=== PATIENT | female | born 1965 | race Caucasian/White ===

== ENCOUNTER 2017-12-07 09:37 | Inpatient (IN) | payer BC ==
[2017-12-07 10:27] VITALS: BMI 32.8
--- NOTE | 2017-12-07 11:29 | HP ---
CIWA Score - CIWA Score Nausea/Vomitin-Mild Nausea/No Vomiting Muscle Tremors: 4-Moderate,w/Arms Extend Anxiety: 4-Mod. Anxious/Guarded Agitation: 4-Moderately Restless Paroxysmal Sweats: 3 Orientation: 0-Oriented Tacttile Disturbances: 0-None Auditory Disturbances: 0-None Visual Disturbances: 0-None Headache: 0-None Present CIWA-Ar Total Score: 16 Admission ROS BHS - HPI Chief Complaint: I am here for detox. Allergies/Adverse Reactions: Allergies Allergy/AdvReac Type Severity Reaction Status Date / Time penicillin G Allergy Severe Swelling Verified 12/07/17 10:42 History of Present Illness: pt is a 52yr old female with a history of alcohol dependence seeking detox for treatment. Exam Limitations: No Limitations - Ebola screening Have you traveled outside of the country in the last 21 days: No Have you had contact with anyone from an Ebola affected area: No Have you been sick,other than usual withdrawal symptoms: No Do you have a fever: No - Review of Systems Constitutional: Chills, Diaphoresis, Loss of Appetite, Night Sweats, Changes in sleep, Unintentional Wgt. Loss EENT: reports: Tearing Respiratory: reports: No Symptoms reported Cardiac: reports: No Symptoms Reported, Syncope GI: reports: Poor Appetite, Poor Fluid Intake : reports: No Symptoms Reported Musculoskeletal: reports: No Symptoms Reported Integumentary: reports: Flushing, Sweating Neuro: reports: Tingling, Tremors Endocrine: reports: Excessive Sweating, Flushing, Intolerance to Cold, Intolerance to Heat Hematology: reports: No Symptoms Reported Psychiatric: reports: Judgement Intact, Mood/Affect Appropiate, Orientated x3, Agitated, Anxious Other Systems: Reviewed and Negative Patient History - Patient Medical History Hx Anemia: No Hx Asthma: No Hx Chronic Obstructive Pulmonary Disease (COPD): No Hx Cancer: No Hx Cardiac Disorders: No Hx Congestive Heart Failure: No Hx Hypertension: Yes (not taking any medication) Hx Hypercholesterolemia: No Hx Pacemaker: No HX Cerebrovascular Accident: No Hx Seizures: No Hx Dementia: No Hx Diabetes: No Hx Gastrointestinal Disorders: No Hx Liver Disease: No Hx Genitourinary Disorders: No Hx Sexually Transmitted Disorders: No Hx Renal Disease (ESRD): No Hx Thyroid Disease: No Hx Human Immunodeficiency Virus (HIV): No (negative) Hx Hepatitis C: No (negative) Hx Depression: Yes Hx Suicide Attempt: No (denies) Hx Bipolar Disorder: No Hx Schizophrenia: No - Patient Surgical History Past Surgical History: Yes Hx Neurologic Surgery: No Hx Cataract Extraction: No Hx Cardiac Surgery: No Hx Lung Surgery: No Hx Breast Surgery: No Hx Breast Biopsy: No Hx Abdominal Surgery: Yes (gastric sleeve in 2013) Hx Appendectomy: No Hx Cholecystectomy: No Hx Genitourinary Surgery: No Hx Section: No Hx Orthopedic Surgery: No Hx Hysterectomy: No Anesthesia Reaction: No - PPD History Previous Implant?: Yes Documented Results: Negative w/o proof Implanted On Prior R Admission?: No PPD to be Administered?: Yes - Reproductive History Patient is a Female of Child Bearing Age (11 -55 yrs old): No - Smoking Cessation Smoking history: Never smoked Hx Chewing Tobacco Use: No Initiated information on smoking cessation: No - Substance & Tx. History Hx Alcohol Use: Yes Hx Substance Use: No Substance Use Type: Alcohol Hx Substance Use Treatment: Yes (last detox [facility] outpatient 1 week ago) - Substances Abused Alcohol-vodka/whisky Route: Oral Frequency: Daily Amount used: 1 pt. Age of first use: 16 Date of Last Use: 12/07/17 Family Disease History - Family Disease History Family History: Denies Admission Physical Exam BHS - Vital Signs Vital Signs: Vital Signs - 24 hr 12/07/17 10:25 Temperature 96.7 F L Pulse Rate 97 H Respiratory 20 Rate Blood Pressure 142/98 - Physical General Appearance: Yes: Appropriately Dressed, Moderate Distress, Tremorous, Irritable, Sweating, Anxious HEENTM: Yes: Hearing grossly Normal, Normal Voice, Nasal Congestion, Rhinorrhea Respiratory: Yes: Lungs Clear, Normal Breath Sounds, No Respiratory Distress Neck: Yes: No masses,lesions,Nodules Breast: Yes: Within Normal Limits Cardiology: Yes: Regular Rhythm, Regular Rate, S1, S2 Abdominal: Yes: Normal Bowel Sounds, Non Tender, Soft Genitourinary: Yes: Within Normal Limits Back: Yes: Normal Inspection Musculoskeletal: Yes: full range of Motion Extremities: Yes: Normal Capillary Refill, Normal Inspection, Tremors Neurological: Yes: Fully Oriented, Alert, Normal Response Integumentary: Yes: Normal Color Lymphatic: Yes: Within Normal Limits - Diagnostic (1) Alcohol dependence with uncomplicated withdrawal Current Visit: Yes Status: Chronic (2) Hypertension Current Visit: Yes Status: Chronic Qualifiers: Hypertension type: essential hypertension Qualified Code(s): I10 - Essential (primary) hypertension (3) H/O bariatric surgery Current Visit: No Status: Chronic Cleared for Admission BHS - Detox or Rehab BHS Level of Care: Medically Managed Detox Regimen/Protocol: Librium BHS Breath Alcohol Content Breath Alcohol Content: 0.337
[2017-12-07] MEDS ORDERED: MAGNESIUM HYDROX 2400MG/30ML ORAL SUSPENSION 30 ML CUP PO PRN (11:31)
[2017-12-07] MEDS ORDERED: guaiFENesin/D-METHORPHAN HB 10 ML UNIT-DOSE CUPS PO PRN (11:31)
[2017-12-07] MEDS ORDERED: P-EPHED 60MG/TRIPROLIDI 2.5MG TABLET PO PRN (11:31)
[2017-12-07] MEDS ORDERED: ACETAMINOPHEN 325 MG TABLET (FP) PO PRN (11:31)
[2017-12-07] MEDS ORDERED: MAG HYDROX/AL HYDROX/SIMETH 30 ML UNIT-DOSE CUP PO PRN (11:31)
[2017-12-07] MEDS ORDERED: LOPERAMIDE HCL 2 MG CAPSULE PO PRN (11:31)
[2017-12-07] MEDS ORDERED: IBUPROFEN 400 MG TABLET (FP) PO PRN (11:31)
[2017-12-07] MEDS ORDERED: MENTHOL/PHENOL 1 EACH UD MM PRN (11:31)
[2017-12-07] MEDS ORDERED: MAGNESIUM CITRATE 300 ML BOTTLE PO PRN (11:31)
[2017-12-07] MEDS ORDERED: chlordiazePOXIDE HCL 25 MG CAPSULE PO ONE (12:00)
[2017-12-07] MEDS: chlordiazePOXIDE HCL 25 MG CAPSULE PO PRN ×2 (14:51→19:32)
--- NOTE | 2017-12-07 15:42 | CONSULT ---
[facility] Psychiatric Consult - Data Date of interview: 12/08/17 Admission source: [facility] Identifying data: Pt. is a 52 year , mother of two, and currently working. This is patient's first admission to [facility]. Pt. admitted to for alcohol dependence. Substance Abuse History: Following information confirmed with Ms. Yi: Smoking Cessation. Smoking history: Never smoked. Hx Chewing Tobacco Use: No. Initiated information on smoking cessation: No. - Substance & Tx. History. Hx Alcohol Use: Yes. Hx Substance Use: No. Substance Use Type: Alcohol. Hx Substance Use Treatment: Yes (last detox [facility] outpatient 1 week ago ). - Substances Abused. Alcohol-vodka/whisky. Route: Oral. Frequency: Daily. Amount used: 1 pt. Age of first use: 16. Date of Last Use: 12/07/17 Medical History: hypertension, gastric sleeve in 2012. Psychiatric History: Pt. denies h/o psychiatric hospitalizations, suicide attempts and outpatient care. Pt. is currently prescribed wellbutrin 300Xl from her PCP. Pt. states she has been taking wellbutrin for approximately 2- 3 years. States her last dose was on Tuesday12/04/17. Physical/Sexual Abuse/Trauma History: Denies. Mental Status Exam - Mental Status Exam Alert and Oriented to: Time, Place, Person Cognitive Function: Good Patient Appearance: Unkempt Mood: Sad, Anxious Affect: Mood Congruent Patient Behavior: Crying (Pt. tearful about current situation.) Speech Pattern: Appropriate Voice Loudness: Normal Thought Process: Goal Oriented Thought Disorder: Not Present Hallucinations: Denies Suicidal Ideation: Denies Homicidal Ideation: Denies Insight/Judgement: Poor Sleep: Poorly Appetite: Fair Muscle strength/Tone: Normal Gait/Station: Normal Psychiatric Findings - Problem List ([place] 1, 2,3) (1) Alcohol dependence with uncomplicated withdrawal Current Visit: Yes Status: Acute (2) MDD (major depressive disorder) Current Visit: Yes Status: Suspected Comment: Pt. is prescribed wellbutrin 300mg XL - Initial Treatment Plan Initial Treatment Plan: Psychoeducation provided. Detoxification in progress. Wellbutrin 300mg XL ordered. Benefits and side effects discussed. Verbal consent given. Will continue to monitor patient.
[2017-12-07] MEDS: chlordiazePOXIDE HCL 25 MG CAPSULE PO SCH ×2 (16:55→22:14)
[2017-12-07 17:07] LABS: URINE APPEARANCE CLEAR; URINE BILIRUBIN NEGATIVE (NEGATIVE); URINE BLOOD 2+ (NEGATIVE); URINE COLOR LTYELLOW; URINE GLUCOSE (UA) NEGATIVE (NEGATIVE); URINE KETONE NEGATIVE (NEGATIVE); URINE LEUK ESTERASE NEGATIVE (NEGATIVE); URINE NITRITE NEGATIVE (NEGATIVE); URINE PROTEIN NEGATIVE (NEGATIVE); URINE UROBILINOGEN NEGATIVE mg/dL (0.2-1.0)
[2017-12-07 17:11] LABS: EPI CELLS RARE /HPF (FEW); URINE MUCUS RARE
[2017-12-07] MEDS: THIAMINE HCL 100 MG TABLET (FP) PO SCH (22:14)
[2017-12-07] MEDS: hydrOXYzine PAMOATE 50 MG CAPSULE (FP) PO PRN (22:14)
[2017-12-08] MEDS: chlordiazePOXIDE HCL 25 MG CAPSULE PO SCH ×4 (05:36→22:18)
[2017-12-08 10:18] LABS: HEMATOCRIT 41.2 % (32.4-45.2); HEMOGLOBIN 13.2 GM/dL (10.7-15.3); MCH 28.9 pg (25.7-33.7); MCHC 32.1 g/dl (32.0-36.0); MEAN CELL VOLUME 89.9 fl (80-96); MEAN PLT VOLUME 8.3 fl (7.5-11.1); PLATELET COUNT 300 K/MM3 (134-434); RBC 4.58 M/mm3 (3.60-5.2); RDW 14.4 % (11.6-15.6); WHITE BLOOD COUNT 7.5 K/mm3 (4.0-10.0)
[2017-12-08 10:25] LABS: ALBUMIN 3.9 g/dl (3.4-5.0); ALK PHOS 77 U/L (45-117); ANION GAP 8 (8-16); BILIRUBIN,TOTAL 0.3 mg/dL (0.2-1.0); BLOOD UREA NITROGEN 18 mg/dL (7-18); CHLORIDE 107 mmol/L (98-107); CO2 30 mmol/L (21-32); CREATININE 0.7 mg/dL (0.55-1.02); GLUCOSE,RANDOM 128 mg/dL (74-106); SGOT/AST 28 U/L (15-37); SGPT/ALT 35 U/L (12-78); SODIUM 145 mmol/L (136-145); TOT PROT 7.3 g/dl (6.4-8.2)
[2017-12-08] MEDS: PRENATAL VITAMINS W/ FOLIC ACID TABLET (FP) PO SCH (10:46)
--- NOTE | 2017-12-08 10:55 | PN ---
S CIWA - CIWA Score Nausea/Vomitin-Mild Nausea/No Vomiting Muscle Tremors: 4-Moderate,w/Arms Extend Anxiety: 3 Agitation: 3 Paroxysmal Sweats: 1-Minimal Palms Moist Orientation: 0-Oriented Tacttile Disturbances: 0-None Auditory Disturbances: 0-None Visual Disturbances: 0-None Headache: 0-None Present CIWA-Ar Total Score: 12 BHS Progress Note (SOAP) Subjective: tremor sweat anxiety irritable Objective: 12/08/17 10:54 Vital Signs Temperature 97.7 F 12/08/17 10:23 Pulse Rate 93 H 12/08/17 10:23 Respiratory Rate 16 12/08/17 10:23 Blood Pressure 152/89 12/08/17 10:23 O2 Sat by Pulse Oximetry (%) Laboratory Last Values WBC 7.5 K/mm3 (4.0-10.0) 12/08/17 06:00 RBC 4.58 M/mm3 (3.60-5.2) 12/08/17 06:00 Hgb 13.2 GM/dL (10.7-15.3) 12/08/17 06:00 Hct 41.2 % (32.4-45.2) 12/08/17 06:00 MCV 89.9 fl (80-96) 12/08/17 06:00 MCH 28.9 pg (25.7-33.7) 12/08/17 06:00 MCHC 32.1 g/dl (32.0-36.0) 12/08/17 06:00 RDW 14.4 % (11.6-15.6) 12/08/17 06:00 Plt Count 300 K/MM3 (134-434) 12/08/17 06:00 MPV 8.3 fl (7.5-11.1) 12/08/17 06:00 Sodium 145 mmol/L (136-145) 12/08/17 06:00 Potassium 4.0 mmol/L (3.5-5.1) 12/08/17 06:00 Chloride 107 mmol/L (98-107) 12/08/17 06:00 Carbon Dioxide 30 mmol/L (21-32) 12/08/17 06:00 Anion Gap 8 (8-16) 12/08/17 06:00 BUN 18 mg/dL (7-18) 02/08/18 06:00 Creatinine 0.7 mg/dL (0.55-1.02) 12/08/17 06:00 Creat Clearance w eGFR > 60 (>60) 12/08/17 06:00 Random Glucose 128 mg/dL (74-106) H 12/08/17 06:00 Calcium 9.0 mg/dL (8.5-10.1) 12/08/17 06:00 Total Bilirubin 0.3 mg/dL (0.2-1.0) 12/08/17 06:00 AST 28 U/L (15-37) 12/08/17 06:00 ALT 35 U/L (12-78) 12/08/17 06:00 Alkaline Phosphatase 77 U/L (45-117) 12/08/17 06:00 Total Protein 7.3 g/dl (6.4-8.2) 12/08/17 06:00 Albumin 3.9 g/dl (3.4-5.0) 12/08/17 06:00 Urine Color Ltyellow 12/07/17 15:50 Urine Appearance Clear 12/07/17 15:50 Urine pH 6.0 (5.0-8.0) 12/07/17 15:50 Ur Specific [place] 1.008 (1.001-1.035) 12/07/17 15:50 Urine Protein Negative (NEGATIVE) 12/07/17 15:50 Urine Glucose (UA) Negative (NEGATIVE) 12/07/17 15:50 Urine Ketones Negative (NEGATIVE) 12/07/17 15:50 Urine Blood 2+ (NEGATIVE) H 12/07/17 15:50 Urine Nitrite Negative (NEGATIVE) 12/07/17 15:50 Urine Bilirubin Negative (NEGATIVE) 12/07/17 15:50 Urine Urobilinogen Negative mg/dL (0.2-1.0) 12/07/17 15:50 Ur Leukocyte Esterase Negative (NEGATIVE) 12/07/17 15:50 Urine WBC (Auto) 1 /hpf (3-5) 12/07/17 15:50 Urine RBC (Auto) <1 /hpf (0-3) 12/07/17 15:50 Ur Epithelial Cells Rare /HPF (FEW) 12/07/17 15:50 Urine Mucus Rare 12/07/17 15:50 lab noted Assessment: 12/08/17 10:54 withdrawal sx Plan: continue detox
--- NOTE | 2017-12-08 12:16 | EKG ---
Test Reason : Blood Pressure : / mmHG Vent. Rate : 102 BPM Atrial Rate : 102 BPM P-R Int : 186 ms QRS Dur : 094 ms QT Int : 346 ms P-R-T Axes : 038 -15 038 degrees QTc Int : 450 ms SINUS TACHYCARDIA MINIMAL VOLTAGE CRITERIA FOR LVH, MAY BE NORMAL VARIANT BORDERLINE ECG NO PREVIOUS ECGS AVAILABLE Confirmed by NATI COREY MD ([id number]) on 12/08/2017 12:15:43 PM Referred By: Confirmed By:NATI COREY MD
[2017-12-08] MEDS: chlordiazePOXIDE HCL 25 MG CAPSULE PO PRN (12:36)
[2017-12-08] MEDS: amLODIPine BESYLATE 5 MG TABLET (FP) PO SCH ×2 (15:44→22:18)
[2017-12-08] MEDS: THIAMINE HCL 100 MG TABLET (FP) PO SCH (22:18)
[2017-12-08] MEDS: hydrOXYzine PAMOATE 50 MG CAPSULE (FP) PO PRN (22:18)
[2017-12-09] MEDS: chlordiazePOXIDE HCL 25 MG CAPSULE PO SCH ×2 (05:56→10:33)
[2017-12-09] MEDS: amLODIPine BESYLATE 5 MG TABLET (FP) PO SCH ×2 (10:33→22:24)
[2017-12-09] MEDS: PRENATAL VITAMINS W/ FOLIC ACID TABLET (FP) PO SCH (10:33)
--- NOTE | 2017-12-09 11:04 | PN ---
S CIWA - CIWA Score Nausea/Vomitin-No Nausea/No Vomiting Muscle Tremors: 3 Anxiety: 3 Agitation: 3 Paroxysmal Sweats: 3 Orientation: 0-Oriented Tacttile Disturbances: 0-None Auditory Disturbances: 0-None Visual Disturbances: 0-None Headache: 0-None Present CIWA-Ar Total Score: 12 BHS Progress Note (SOAP) Subjective: agitation sweats shakes interrupted sleep Objective: 12/09/17 11:03 Vital Signs Temperature 97.7 F 12/09/17 06:14 Pulse Rate 93 H 12/09/17 06:14 Respiratory Rate 18 12/09/17 06:14 Blood Pressure 112/77 12/09/17 06:14 O2 Sat by Pulse Oximetry (%) aaox3 ambulating no acute distress Assessment: 12/09/17 11:03 withdrawal sx Plan: continue detox increase fluids
[2017-12-09] MEDS: chlordiazePOXIDE 5 MG CAPSULE PO SCH ×2 (17:44→22:24)
[2017-12-09] MEDS: chlordiazePOXIDE HCL 25 MG CAPSULE PO PRN (20:17)
[2017-12-09] MEDS: THIAMINE HCL 100 MG TABLET (FP) PO SCH (22:24)
[2017-12-09] MEDS: hydrOXYzine PAMOATE 50 MG CAPSULE (FP) PO PRN (22:24)
[2017-12-10] MEDS: chlordiazePOXIDE 5 MG CAPSULE PO SCH (05:37)
[2017-12-10] MEDS ORDERED: chlordiazePOXIDE HCL 10 MG CAPSULE PO SCH ×2 (10:41→17:00)
--- NOTE | 2017-12-10 10:46 | DS ---
[facility] Detox Discharge Summary Admission Date: 12/07/17 Discharge Date: 12/10/17 - History Present History: Alcohol Dependence Additional Comments: Pt A & O x 3, requesting d/c for today to allow her go put things in place and resume to work tuesday. Pt will follow up with PMD and outpatient at [facility]. Pt in no acute distress, ambulating well on unit Pertinent Past History: Prior hx of HTNB Gastric sleeve by pass Depression - Physical Exam Results Vital Signs: Vital Signs Temperature 97.7 F 12/10/17 06:00 Pulse Rate 93 H 12/10/17 06:00 Respiratory Rate 18 12/10/17 06:00 Blood Pressure 126/80 12/10/17 06:00 O2 Sat by Pulse Oximetry (%) Pertinent Admission Physical Exam Findings: withdrawal sx Vital Signs Temperature 97.7 F 12/10/17 06:00 Pulse Rate 93 H 12/10/17 06:00 Respiratory Rate 18 12/10/17 06:00 Blood Pressure 126/80 12/10/17 06:00 O2 Sat by Pulse Oximetry (%) Laboratory Last Values WBC 7.5 K/mm3 (4.0-10.0) 12/08/17 06:00 RBC 4.58 M/mm3 (3.60-5.2) 12/08/17 06:00 Hgb 13.2 GM/dL (10.7-15.3) 12/08/17 06:00 Hct 41.2 % (32.4-45.2) 12/08/17 06:00 MCV 89.9 fl (80-96) 12/08/17 06:00 MCH 28.9 pg (25.7-33.7) 12/08/17 06:00 MCHC 32.1 g/dl (32.0-36.0) 12/08/17 06:00 RDW 14.4 % (11.6-15.6) 12/08/17 06:00 Plt Count 300 K/MM3 (134-434) 12/08/17 06:00 MPV 8.3 fl (7.5-11.1) 12/08/17 06:00 Sodium 145 mmol/L (136-145) 12/08/17 06:00 Potassium 4.0 mmol/L (3.5-5.1) 12/08/17 06:00 Chloride 107 mmol/L (98-107) 12/08/17 06:00 Carbon Dioxide 30 mmol/L (21-32) 12/08/17 06:00 Anion Gap 8 (8-16) 12/08/17 06:00 BUN 18 mg/dL (7-18) 12/08/17 06:00 Creatinine 0.7 mg/dL (0.55-1.02) 12/08/17 06:00 Creat Clearance w eGFR > 60 (>60) 12/08/17 06:00 Random Glucose 128 mg/dL (74-106) H 12/08/17 06:00 Calcium 9.0 mg/dL (8.5-10.1) 12/08/17 06:00 Total Bilirubin 0.3 mg/dL (0.2-1.0) 12/08/17 06:00 AST 28 U/L (15-37) 12/08/17 06:00 ALT 35 U/L (12-78) 12/08/17 06:00 Alkaline Phosphatase 77 U/L (45-117) 12/08/17 06:00 Total Protein 7.3 g/dl (6.4-8.2) 12/08/17 06:00 Albumin 3.9 g/dl (3.4-5.0) 12/08/17 06:00 Urine Color Ltyellow 12/07/17 15:50 Urine Appearance Clear 12/07/17 15:50 Urine pH 6.0 (5.0-8.0) 12/07/17 15:50 Ur Specific [place] 1.008 (1.001-1.035) 12/07/17 15:50 Urine Protein Negative (NEGATIVE) 12/07/17 15:50 Urine Glucose (UA) Negative (NEGATIVE) 12/07/17 15:50 Urine Ketones Negative (NEGATIVE) 12/07/17 15:50 Urine Blood 2+ (NEGATIVE) H 12/07/17 15:50 Urine Nitrite Negative (NEGATIVE) 12/07/17 15:50 Urine Bilirubin Negative (NEGATIVE) 12/07/17 15:50 Urine Urobilinogen Negative mg/dL (0.2-1.0) 12/07/17 15:50 Ur Leukocyte Esterase Negative (NEGATIVE) 12/07/17 15:50 Urine WBC (Auto) 1 /hpf (3-5) 12/07/17 15:50 Urine RBC (Auto) <1 /hpf (0-3) 12/07/17 15:50 Ur Epithelial Cells Rare /HPF (FEW) 12/07/17 15:50 Urine Mucus Rare 12/07/17 15:50 RPR Titer Nonreactive (NONREACTIVE) 12/08/17 06:00 - Treatment Patient has Accepted a Rehab Referral to: out patient at [facility] - Medication Discharge Medications: Ambulatory Orders Bupropion HCl [Wellbutrin -] 0 mg PO DAILY 12/07/17 Lorazepam [Ativan] 1 mg PO BID 12/07/17 - Diagnosis (1) Alcohol dependence with uncomplicated withdrawal Current Visit: Yes Status: Chronic (2) Hypertension Current Visit: Yes Status: Resolved Qualifiers: Hypertension type: essential hypertension Qualified Code(s): I10 - Essential (primary) hypertension (3) MDD (major depressive disorder) Current Visit: Yes Status: Chronic (4) H/O bariatric surgery Current Visit: No Status: Chronic - AMA Did Patient Leave Against Medical Advice: No
[2017-12-10] MEDS: PRENATAL VITAMINS W/ FOLIC ACID TABLET (FP) PO SCH (10:55)
[2017-12-10] MEDS: amLODIPine BESYLATE 5 MG TABLET (FP) PO SCH (10:55)
[2017-12-10 11:30] VITALS: BP 139/82; PULSE 89; TEMP 97
== END 2017-12-10 13:45 | disposition home or self-care (01) | DRG 897 ==
LOC: YASAS 09:37 → Y6N 11:50
PROVIDERS: ADMIT Internal Medicine; ATTEND Internal Medicine
PROC: HZ2ZZZZ Detoxification Services for Substance Abuse Treatment (ICD-10-PCS; principal; 2017-12-07)
DX: F10.230 Alcohol dependence with withdrawal, uncomplicated (principal); F33.9 Major depressive disorder, recurrent, unspecified; I10 Essential (primary) hypertension; Z98.84 Bariatric surgery status; Z88.0 Allergy status to penicillin
CPT/HCPCS: 36415; 80053; 81003; 81015; 85027; 86593; 93005; 93010

== ENCOUNTER 2018-02-14 21:09 | Inpatient (IN) | payer BC ==
[2018-02-14 21:45] VITALS: BMI 32.1
[2018-02-14] MEDS ORDERED: MELATONIN 5 MG TABLETS PO PRN (22:00)
--- NOTE | 2018-02-14 22:18 | HP ---
CIWA Score - CIWA Score Nausea/Vomitin-No Nausea/No Vomiting Muscle Tremors: 3 Anxiety: 5 Agitation: 5 Paroxysmal Sweats: 3 Orientation: 1-Uncertain about Date Tacttile Disturbances: 0-None Auditory Disturbances: 0-None Visual Disturbances: 0-None Headache: 0-None Present CIWA-Ar Total Score: 17 Admission ROS S - HPI Chief Complaint: C/O WITHDRAWAL SX'S. SEEKING DETOX FOR ALCOHOLISM. Allergies/Adverse Reactions: Allergies Allergy/AdvReac Type Severity Reaction Status Date / Time penicillin G Allergy Severe Swelling Verified 02/14/18 21:41 History of Present Illness: 52 Y.O. FEMALE WITH LONG HX/O ALCOHOLISM KNOWN TO THIS PROGRAM SEEKING ADMISSION FOR INAPTIENT DETOX. CLIENT WAS LAST HER IN DEC 2017 BUT HAS SINCE RELAPSED. SHE WAS BROUGHT IN BY FAMILY TODAY. SHE IS PRESENTLY UPSET ABOUT BEING HERE BUT IS WILLING TO COMPLETE THE PROGRAM TO MAINTAIN RELATIONSHIP WITH FAMILY MEMBERS. PMHX: HTN, ANXIETY, DEPRESSION. REPORTS LONGEST CLEAN TIME 8 YEARS. DENIES LEGALS Exam Limitations: Intoxication - Ebola screening Have you traveled outside of the country in the last 21 days: No Have you had contact with anyone from an Ebola affected area: No Have you been sick,other than usual withdrawal symptoms: No Do you have a fever: No - Review of Systems Constitutional: Changes in sleep EENT: reports: No Symptoms Reported Respiratory: reports: Shortness of Breath (R/T ANXIETY) Cardiac: reports: No Symptoms Reported GI: reports: Poor Fluid Intake (C/O THIRST) : reports: No Symptoms Reported Musculoskeletal: reports: No Symptoms Reported Integumentary: reports: No Symptoms Reported Neuro: reports: No Symptoms reported Endocrine: reports: No Symptoms Reported Hematology: reports: No Symptoms Reported Psychiatric: reports: Anxious, Depressed Other Systems: Reviewed and Negative Patient History - Patient Medical History Hx Anemia: No Hx Asthma: No Hx Chronic Obstructive Pulmonary Disease (COPD): No Hx Cancer: No Hx Cardiac Disorders: No Hx Congestive Heart Failure: No Hx Hypertension: Yes (not taking any medication) Hx Hypercholesterolemia: No Hx Pacemaker: No HX Cerebrovascular Accident: No Hx Seizures: No Hx Dementia: No Hx Diabetes: No Hx Gastrointestinal Disorders: No Hx Liver Disease: No Hx Genitourinary Disorders: No Hx Sexually Transmitted Disorders: No Hx Renal Disease (ESRD): No Hx Thyroid Disease: No Hx Human Immunodeficiency Virus (HIV): No (negative) Hx Hepatitis C: No (negative) Hx Depression: Yes Hx Suicide Attempt: No (denies) Hx Bipolar Disorder: No Hx Schizophrenia: No Other Medical History: ANXIETY - Patient Surgical History Past Surgical History: Yes Hx Neurologic Surgery: No Hx Cataract Extraction: No Hx Cardiac Surgery: No Hx Lung Surgery: No Hx Breast Surgery: No Hx Breast Biopsy: No Hx Abdominal Surgery: Yes (gastric sleeve in 2013) Hx Appendectomy: No Hx Cholecystectomy: No Hx Genitourinary Surgery: No Hx Section: No Hx Orthopedic Surgery: No Hx Hysterectomy: No Anesthesia Reaction: No - PPD History Previous Implant?: Yes Documented Results: Negative w/proof Implanted On Prior [facility] Admission?: Yes Date: 12/09/17 Results: 0MM PPD to be Administered?: No - Reproductive History Patient is a Female of Child Bearing Age (11 -55 yrs old): Yes LMP comment: MENAPAUSE Patient : No (NEG CG) - Smoking Cessation Smoking history: Former smoker Have you smoked in the past 12 months: No Cigars Per Day: 0 Hx Chewing Tobacco Use: No Initiated information on smoking cessation: No - Substance & Tx. History Hx Alcohol Use: Yes Hx Substance Use: Yes Substance Use Type: Alcohol Hx Substance Use Treatment: Yes ([facility]) - Substances Abused Alcohol Route: Oral Frequency: Daily Amount used: LIQUOR- 1 PINT Age of first use: 16 Date of Last Use: 02/14/18 Family Disease History - Family Disease History Family History: Denies Admission Physical Exam BHS - Vital Signs Vital Signs: Vital Signs - 24 hr 02/14/18 21:42 Temperature 97.2 F L Pulse Rate 86 Respiratory 18 Rate Blood Pressure 100/68 - Physical General Appearance: Yes: Appropriately Dressed, Mild Distress, Tremorous, Irritable, Anxious, Other (CRYING ON AND OFF) HEENTM: Yes: EOMI, Normocephalic, Normal Voice, LARA, Pharynx Normal, Other ( DRY MM) Respiratory: Yes: Chest Non-Tender, Lungs Clear, Normal Breath Sounds, No Respiratory Distress, No Accessory Muscle Use Neck: Yes: No masses,lesions,Nodules, Supple, Trachea in good position Breast: Yes: Breast Exam Deferred Cardiology: Yes: Regular Rhythm, S1, S2, Tachycardia Abdominal: Yes: Non Tender, Soft, Increased Bowel Sounds, Protuberent Genitourinary: Yes: Within Normal Limits Back: Yes: Normal Inspection Musculoskeletal: Yes: full range of Motion, Gait Steady Extremities: Yes: Normal Capillary Refill, Normal Range of Motion, Non-Tender, Tremors Neurological: Yes: Alert, Motor Strength 5/5 Integumentary: Yes: Normal Color, Dry, Warm, Track [place] (BRUSING TO KNEE FROM PREVIOUS FALLS RESOLVING ECCHYMOTIC AREAS TO BUE FROM HSOPITALIZATION WITH IV STICKS) Lymphatic: Yes: Within Normal Limits - Diagnostic (1) Dry mucous membranes Current Visit: Yes Status: Acute (2) Alcohol dependence with uncomplicated withdrawal Current Visit: Yes Status: Chronic (3) MDD (major depressive disorder) Current Visit: Yes Status: Suspected Comment: Pt. is prescribed wellbutrin 300mg XL (4) Hypertension Current Visit: Yes Status: Suspected Qualifiers: Hypertension type: essential hypertension Qualified Code(s): I10 - Essential (primary) hypertension Cleared for Admission [facility] - Detox or Rehab [facility] Level of Care: Medically Managed Detox Regimen/Protocol: Dianna Claeared for Rehab Admission: No S Breath Alcohol Content Breath Alcohol Content: 0.238 Urine Pregancy Test - Result Urine Test Results: Negative- NO Line Present Urine Drug Screen - Results Drug Screen Negative: No Urine Drug Screen Results: BZO-Benzodiazepines, TCA-Tricyclic Antidepress
[2018-02-14] MEDS ORDERED: LOPERAMIDE HCL 2 MG CAPSULE PO PRN (22:30)
[2018-02-14] MEDS ORDERED: MAGNESIUM HYDROX 2400MG/30ML ORAL SUSPENSION 30 ML CUP PO PRN (22:30)
[2018-02-14] MEDS ORDERED: MAGNESIUM CITRATE 300 ML BOTTLE PO PRN (22:30)
[2018-02-14] MEDS ORDERED: NICOTINE POLACRILEX 2 MG GUM BC PRN (22:30)
[2018-02-14] MEDS ORDERED: hydrOXYzine PAMOATE 50 MG CAPSULE (FP) PO PRN (22:30)
[2018-02-14] MEDS ORDERED: MENTHOL/PHENOL 1 EACH UD MM PRN (22:30)
[2018-02-14] MEDS ORDERED: MAG HYDROX/AL HYDROX/SIMETH 30 ML UNIT-DOSE CUP PO PRN (22:30)
[2018-02-14] MEDS ORDERED: chlordiazePOXIDE HCL 25 MG CAPSULE PO PRN (22:30)
[2018-02-14] MEDS ORDERED: guaiFENesin/D-METHORPHAN HB 10 ML UNIT-DOSE CUPS PO PRN (22:30)
[2018-02-14] MEDS ORDERED: P-EPHED 60MG/TRIPROLIDI 2.5MG TABLET PO PRN (22:30)
[2018-02-14] MEDS ORDERED: IBUPROFEN 400 MG TABLET (FP) PO PRN (22:30)
[2018-02-14] MEDS ORDERED: ACETAMINOPHEN 325 MG TABLET (FP) PO PRN (22:30)
[2018-02-14] MEDS: chlordiazePOXIDE HCL 25 MG CAPSULE PO SCH (23:27)
[2018-02-15] MEDS: chlordiazePOXIDE HCL 25 MG CAPSULE PO SCH (05:21)
--- NOTE | 2018-02-15 07:25 | CONSULT ---
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 Patient has a long historty of alcoholism, well known to this program, with last detox on 12/18, Substance Abuse History: - Smoking Cessation. Smoking history: Former smoker. Have you smoked in the past 12 months: No. Cigars Per Day: 0. Hx Chewing Tobacco Use: No. Initiated information on smoking cessation: No. - Substance & Tx. History. Hx Alcohol Use: Yes. Hx Substance Use: Yes. Substance Use Type : Alcohol. Hx Substance Use Treatment: Yes ([facility]). - Substances Abused. Alcohol. Route: Oral. Frequency: Daily. Amount used: LIQUOR- 1 PINT. Age of first use: 16. Date of Last Use: 02/14/18 Medical History: Obesity, HTN Psychiatric History: Patient reports history opf depression, as per computer MDD history, denies psychiatric hospitalization history, denies suicidal and homicidal history. Reports taking prior to admission: 'Cymbalta 30mg poqd Physical/Sexual Abuse/Trauma History: Denies Additional Comment: 'Cymbalta 30mg poqd Mental Status Exam - Mental Status Exam Alert and Oriented to: Person Cognitive Function: Fair Patient Appearance: Unkempt Mood: Sad Affect: Mood Congruent Patient Behavior: Cooperative Speech Pattern: Delayed Voice Loudness: Mildly Soft/Quiet Thought Process: Goal Oriented Thought Disorder: Being Controlled Hallucinations: Denies Suicidal Ideation: Denies Homicidal Ideation: Denies Insight/Judgement: Fair Sleep: Difficulty falling asleep Appetite: Weight gain Muscle strength/Tone: Mild Hypotonicity Gait/Station: Shuffling Additional Comments: 'Cymbalta 30mg poqd Psychiatric Findings - Problem List ([place] 1, 2,3) (1) Alcohol-induced mood disorder Current Visit: Yes Status: Acute (2) Alcohol dependence with uncomplicated withdrawal Current Visit: Yes Status: Chronic (3) MDD (major depressive disorder) Current Visit: Yes Status: Suspected Comment: Pt. is prescribed wellbutrin 300mg XL - Initial Treatment Plan Initial Treatment Plan: Cymbalta 30mg poqd
--- NOTE | 2018-02-15 09:27 | DS ---
[facility] Detox Discharge Summary Admission Date: 02/14/18 Discharge Date: 02/15/18 - History Present History: Alcohol Dependence Additional Comments: 52 years old female admitted 02/14/18 for alcohol withdrawal sx patient stated that she has a court date 02/16/18 needs to determinate the detox and prepare "myself for the court" patient is alert and oriented x 3 no acute distress had breakfast ambulating on [address] coherent patient reported that she sober x 5 years due to current circumstance had one drink yesterday and willing to return to aa for support - Physical Exam Results Vital Signs: Vital Signs Temperature 98.1 F 02/15/18 06:00 Pulse Rate 110 H 02/15/18 08:59 Respiratory Rate 18 02/15/18 08:59 Blood Pressure 142/88 02/15/18 06:00 O2 Sat by Pulse Oximetry (%) Pertinent Admission Physical Exam Findings: withdrawal sx Vital Signs Temperature 98.1 F 02/15/18 06:00 Pulse Rate 110 H 02/15/18 08:59 Respiratory Rate 18 02/15/18 08:59 Blood Pressure 142/88 02/15/18 06:00 O2 Sat by Pulse Oximetry (%) lab not available at this time - Treatment Hospital Course: Detox Protocol Followed, Responded well Patient has Accepted a Rehab Referral to: community aa meeting and self help support group - Medication Discharge Medications: Ambulatory Orders Bupropion HCl [Wellbutrin -] 0 mg PO DAILY 12/07/17 Lorazepam [Ativan] 1 mg PO BID 12/07/17 Duloxetine HCl [Cymbalta -] 30 mg PO DAILY #30 capsule. 02/15/18 - Diagnosis (1) Alcohol dependence with uncomplicated withdrawal Current Visit: Yes Status: Acute (2) Hypertension Current Visit: Yes Status: Chronic Qualifiers: Hypertension type: essential hypertension Qualified Code(s): I10 - Essential (primary) hypertension (3) H/O bariatric surgery Current Visit: No Status: Resolved - AMA Did Patient Leave Against Medical Advice: Yes
--- NOTE | 2018-02-15 09:28 | EKG ---
Test Reason : Blood Pressure : / mmHG Vent. Rate : 079 BPM Atrial Rate : 079 BPM P-R Int : 182 ms QRS Dur : 094 ms QT Int : 394 ms P-R-T Axes : 056 -11 034 degrees QTc Int : 451 ms NORMAL SINUS RHYTHM MINIMAL VOLTAGE CRITERIA FOR LVH, MAY BE NORMAL VARIANT BORDERLINE ECG WHEN COMPARED WITH ECG OF 07-DEC-2017 13:35, NO SIGNIFICANT CHANGE WAS FOUND Confirmed by NEIL CHONG, KAVITA ([id number]) on 02/15/2018 9:28:09 AM Referred By: Confirmed By:KAVITA TREJO MD
[2018-02-15 09:52] LABS: HEMOGLOBIN 11.5 GM/dL (10.7-15.3); MCH 30.7 pg (25.7-33.7); MCHC 33.9 g/dl (32.0-36.0); MEAN CELL VOLUME 90.5 fl (80-96); MEAN PLT VOLUME 7.7 fl (7.5-11.1); PLATELET COUNT 232 K/MM3 (134-434); RBC 3.75 M/mm3 (3.60-5.2); RDW 14.4 % (11.6-15.6); WHITE BLOOD COUNT 4.3 K/mm3 (4.0-10.0)
[2018-02-15] MEDS ORDERED: PRENATAL VITAMINS W/ FOLIC ACID TABLET (FP) PO SCH (10:00)
[2018-02-15] MEDS ORDERED: DULoxetine HCL 30 MG CAPSULE.DR (FP) PO SCH (10:00)
[2018-02-15 10:04] LABS: CHLORIDE 106 mmol/L (98-107); POTASSIUM 4.1 mmol/L (3.5-5.1); SODIUM 142 mmol/L (136-145)
[2018-02-15 10:17] LABS: ALBUMIN 3.2 g/dl (3.4-5.0); ALK PHOS 61 U/L (45-117); ANION GAP 9 (8-16); BILIRUBIN,TOTAL 0.6 mg/dL (0.2-1.0); BLOOD UREA NITROGEN 18 mg/dL (7-18); CALCIUM 8.7 mg/dL (8.5-10.1); CO2 27 mmol/L (21-32); CREATININE 0.6 mg/dL (0.55-1.02); GLUCOSE,RANDOM 137 mg/dL (74-106); SGOT/AST 31 U/L (15-37); SGPT/ALT 49 U/L (12-78); TOT PROT 6.5 g/dl (6.4-8.2)
[2018-02-15 10:37] VITALS: BP 156/81; PULSE 111; TEMP 97.3
[2018-02-15 18:11] LABS: URINE APPEARANCE CLEAR; URINE BILIRUBIN NEGATIVE (<2.0 mg/dL); URINE BLOOD 1+ (NEGATIVE); URINE COLOR LTYELLOW; URINE GLUCOSE (UA) NEGATIVE (NEGATIVE); URINE KETONE NEGATIVE (NEGATIVE); URINE LEUK ESTERASE NEGATIVE (NEGATIVE); URINE NITRITE NEGATIVE (NEGATIVE); URINE PROTEIN NEGATIVE (NEGATIVE); URINE UROBILINOGEN NEGATIVE mg/dL (0.2-1.0)
[2018-02-15 18:15] LABS: EPI CELLS RARE /HPF (FEW); URINE HYALINE CAST 1 /lpf; URINE MUCUS RARE
[2018-02-15] MEDS ORDERED: THIAMINE HCL 100 MG TABLET (FP) PO SCH (22:00)
[2018-02-15] MEDS ORDERED: chlordiazePOXIDE HCL 25 MG CAPSULE PO SCH (23:00)
[2018-02-16] MEDS ORDERED: chlordiazePOXIDE 5 MG CAPSULE PO SCH (23:00)
[2018-02-17] MEDS ORDERED: chlordiazePOXIDE HCL 10 MG CAPSULE PO SCH (23:00)
== END 2018-02-15 10:00 | disposition left against medical advice (07) | DRG 894 ==
LOC: YASAS 21:09 → Y6N 21:58
PROVIDERS: ADMIT Internal Medicine; ATTEND Internal Medicine
PROC: HZ2ZZZZ Detoxification Services for Substance Abuse Treatment (ICD-10-PCS; principal; 2018-02-14)
DX: F10.230 Alcohol dependence with withdrawal, uncomplicated (principal); F10.24 Alcohol dependence with alcohol-induced mood disorder; F32.9 Major depressive disorder, single episode, unspecified; F41.9 Anxiety disorder, unspecified; Z98.84 Bariatric surgery status
CPT/HCPCS: 36415; 80053; 81003; 81015; 85027; 86593; 93005; 93010